=== PATIENT | male | born 1985 | race Two or more races ===

== ENCOUNTER 2020-05-26 11:34 | Emergency (ER) | payer OTHER, SELFPAY ==
[2020-05-26 11:42] VITALS: BP 129/85; PULSE 63; RESP 16; TEMP 37; O2SAT 97; BMI 30.2
[2020-05-26 11:44] VITALS: BP 129/85; PULSE 62; RESP 16; TEMP 37; O2SAT 97
--- NOTE | 2020-05-26 11:46 | ED_ITS ---
HPI - Abdominal Pain General Chief Complaint: Abdominal Pain Stated Complaint: vomiting History of Present Illness HPI narrative: patient presents to ED for withdrawal from opioids. Patient states he last used heroin 3 days ago. Patient states abdominal cramping with some diarrhea and vomiting. Patient states he does not want detox. Patient does not want methadone or Suboxone. Patient states he wants to do it on his own. Patient states no fever, or chills. Patient denies being exposed to anyone with COVID-19. MD elicited complaint: abdominal pain Quality: cramping Radiation: none Associated symptoms: nausea, vomiting and diarrhea Related Data Allergies Allergy/AdvReac Type Severity Reaction Status Date / Time No Known Allergies Allergy Unverified 04/25/20 17:13 Review of Systems Review of Systems Yes all other systems are reviewed and are negative Constitutional: Reports as per HPI and Reports no additional constitutional complaints Eyes: Reports as per HPI and Reports no additional eye complaints Reports system reviewed and no additional complaints, except as documented, Reports as per HPI and Denies odynophagia Cardiovascular: Reports as per HPI and Reports no additional cardiovascular complaints Respiratory: Reports as per HPI and Reports no additional respiratory complaints Gastrointestinal: Reports abdominal pain (crampin), Denies melena, Denies bloating, Denies hematochezia, Denies coffee ground emesis, Denies constipation, Reports GI cramping, Denies excessive flatus, Denies early satiety, Denies dyspepsia, Denies heartburn, Denies fecal incontinence, Reports diarrhea, Denies odynophagia and Denies vomiting Genitourinary: Reports no additional male genitourinary complaints and Reports as per HPI Reports system reviewed and no additional complaints, except as documented and Reports as per HPI Psychiatric: Reports no additional psychiatric complaints and Reports as per HPI Physical Exam Vital Signs: Vital Signs: Vital Signs Temp Pulse Resp BP Pulse Ox 05/26/20 11:44 98.6 F 62 16 129/85 97 05/26/20 11:42 98.6 F 63 16 129/85 97 Body Mass Index 30.2 Const: General: cooperative, healthy appearing, comfortable and no acute distress Orientation/consciousness: oriented to person, oriented to place, oriented to time and patient oriented x3 HENMT: Head: Yes normal to inspection Eyes: General: appearance normal, both eyes and all related structures Neck: Neck: Yes normal visual inspection, Yes full ROM, Yes no lymphadenopathy, Yes no meningeal signs, No lymphadenopathy, No positive Brudzinski's sign and No positive Kernig's sign Chest: Chest palpation & inspection: normal inspection of the chest and normal palpation of entire chest wall Resp: Effort & Inspection: normal respiratory effort and able to speak in complete sentences Cardio: Jugular venous distension: no JVD Rate: regular rate Heart sounds: S1 normal heart sound present and S2 normal heart sound present GI: Inspection: Yes normal to inspection, No abdominal wall ecchymosis, No Abdominal wall edema and No distended Palpation (GI): Soft to palpation, not firm, nontender, no guarding and not rigid Percussion: Yes normal to percussion Auscultation: normal bowel sounds : General: No CVA tenderness and Yes no CVA tenderness Back/Spine/Pelvis: Back: no CVA tenderness, No CVA tenderness and No back tend erness Skin: General skin exam: no rashes or lesions noted Neuro: General: oriented to person, oriented to place, oriented to time, patient oriented x3, no meningeal signs and CN's II-XI intact bilaterally Cranial nerves: Yes CN's II-XII intact bilaterally Extrem: General: Yes normal to inspection and Yes full ROM Psych: Appearance: grossly normal, well kempt and not disheveled Course Course Course Narrative: Vital signs are stable. History physical exam indicate heroin withdrawal. 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 Patient wants to end heroin use by myself. Reevaluation(s) Reevaluation #1: patient states he feels better after receiving Ativan and Zofran. Patient withdrawal symptoms resolved. Patient once again does not want detox and does not want referral for Suboxone or methadone program. Labs not indicated. Patient did not have any vomiting or diarrhea during ED visit Time: 13:46 MDM - Abdominal Pain MDM Narrative Medical decision making narrative: opioid withdrawal Discharge Plan Discharge Clinical Impression: Withdrawal from opioids Patient Disposition: Home, Self-Care Instructions: Opioid Withdrawal (ED) Additional Instructions: return to the ED for any tremors, severe abdominal pain, vomiting, sweating, diarrhea, weakness, or any other concerning symptoms. Please follow up with your PCP as soos as possible Interventions: ED Discharge Assessment Last Done: 05/26/20 14:12 Discharge Date/Time: 05/26/20 14:13 Print Language: Polish [facility] Past Medical History Medical History (Updated 05/26/20 @ 13:50 by LEWIS Morrow) Asthma Social History Social History Alcohol intake: never Smoking Status: Current every day smoker Use of substances other than those prescribed or required for medical reasons: No Advance Directives: No Advance Directives Information Provided: No
[2020-05-26] MEDS: LORazepam 1 MG TABLET 2 MG PO (12:04)
--- NOTE | 2020-05-26 12:24 | PC.NURSE ---
PT PRESENTS TO ED C/O DIFFUSE ABD AND BODY PAIN W/ N/V/D X2 DAYS, NO FOCAL POINTS OF TENDERNESS IN ABD. PT THEN LATER REPORTS THAT HE IS A REGULAR HEROIN USER AND IS CURRENTLY EXPERIENCING WITHDRAWLS, HAS NOT USED IN MULTIPLE DAYS. PROVIDER AWARE. PT MEDICATED FOR NAUSEA AND AGGITATION PER EMAR. PT NOW R SIDE LYING IN BED RESTING.
== END 2020-05-26 14:13 | disposition home or self-care (01) ==
PROVIDERS: Emergency Provider Emergency Medicine
DX: F11.93 Opioid use, unspecified with withdrawal (principal); R10.9 Unspecified abdominal pain; F17.200 Nicotine dependence, unspecified, uncomplicated
CPT/HCPCS: 96361; 96374; 96375; 99284; J2405

== ENCOUNTER 2022-04-30 19:46 | Observation (INO) | payer OTHER, SELFPAY ==
--- NOTE | ~2022-04-30 | XR_ITS ---
EXAMINATION: XR CHEST CLINICAL INFORMATION: Dyspnea COMPARISON: Chest x-ray on 04/28/2018 TECHNIQUE: Frontal view of the chest was obtained. FINDINGS: The cardiac silhouette is normal. There is mild diffuse bronchial wall thickening. There are no areas of consolidation. There are no pleural effusions or pneumothoraces. The bones and soft tissues are unremarkable for the patient's age. XR/XR chest 1V IMPRESSION: Bronchial wall thickening may be infectious and/or inflammatory in etiology.
[2022-04-30 19:47] VITALS: BP 117/69; PULSE 71; RESP 14; TEMP 37.2; O2SAT 93; BMI 32.3
--- NOTE | 2022-04-30 20:00 | ED_ITS ---
HPI - SOB/Dyspnea General Chief Complaint: Dyspnea Stated Complaint: Asthma Time Seen by Provider: 04/30/22 19:57 Source: patient Mode of arrival: ambulatory Limitations: no limitations History of Present Illness HPI Narrative: 36-year-old male states he ran out of his albuterol yesterday patient appears to be in status on arrival patient was brought immediately back to the room was seen immediately by me patient speaking in 3-5 word sentences patient denies any falls or injuries he states he was here in the hospital 4 months ago he does not have a primary care doctor. MD elicited complaint: shortness of breath and cough Pertinent past history: COPD and asthma Related Data Allergies Allergy/AdvReac Type Severity Reaction Status Date / Time No Known Allergies Allergy Unverified 04/25/20 17:13 Review of Systems Review of Systems: Review of systems: General: Patient denies any fever chills recent illness or falls Musculoskeletal: Denies back pain or body aches or other injuries HEENT: denies headache, runny nose, ear pain Respiratory: shortness of breath, cough Cardiovascular: no chest pain or palpitations : denies dysuria, frequency Abdomen: no nausea vomiting denies abdominal pain Extremities: no swelling, no pain Skin: no diaphoresis Yes all other systems are reviewed and are negative PMFSH Past Medical History Medical History (Updated 04/30/22 @ 21:16 by Emiliano Lima DO) Asthma Social History Social History Alcohol intake: never Advance Directives: No Advance Directives Information Provided: No Physical Exam Vital Signs: Vital Signs: Last Vital Signs Temp 98.9 F 04/30/22 19:47 Pulse 74 04/30/22 21:33 Resp 18 04/30/22 21:33 BP 117/69 04/30/22 19:47 Pulse Ox 93 04/30/22 19:47 O2 Del Method 04/30/22 19:47 BMI result Body Mass Index 32.3 General: Well-appearing well-nourished in no signs of distress HEENT: Normocephalic atraumatic Neck: No signs of JVD, no masses no tenderness or lymphadenopathy Cardiovascular: Regular rate and rhythm Respiratory: Wheezing bilaterally Abdomen: Soft nontender no masses Extremities: Normal pedal pulses no signs of edema Skin: Dry warm no rashes Back: No tenderness full ROM MDM - SOB/Dyspnea MDM Narrative Medical decision making narrative: I will give the patient some breathing treatments prednisone and get an x-ray and workup has including a VBG. Labs looks okay he did improve but still somnolent but arousable now with diffuse wheezing moving more air. I will give another breathing treatment XR shows pneumonia I will start on doxycycline. Differential Diagnosis Differential diagnosis: Likely asthma with exacerbation Medical Records Attestation: I reviewed the patient's medical records. Lab Data Result diagrams: 04/30/22 20:17 04/30/22 20:17 Labs: Lab Results 04/30/22 04/30/22 04/30/22 Range/Units 20:15 20:17 20:17 WBC 12.5 H (4.8-10.8) X10*3/uL RBC 4.74 (4.60-5.80) X10*6/uL Hgb 12.7 L (14.0-18.0) g/dl Hct 40.1 L (42.0-52.0) % MCV 84.6 (80.0-98.0) fL MCH 26.8 L (27.0-33.0) pg MCHC 31.7 (31.0-36.0) g/dl RDW 13.8 (11.0-16.0) % Plt Count 298 (160-400) X10*3/uL MPV 8.8 L (9.4-12.4) fL Immature Gran % (Auto) 0.3 (0.0-0.4) % Neut % (Auto) 68.8 (45-73) % Lymph % (Auto) 20.7 (20-40) % [place] % (Auto) 6.3 (2-11) % Eos % (Auto) 3.6 (0-4) % Baso % (Auto) 0.3 (0-2) % Lymph # (Auto) 2.6 (1.2-4.9) X10*3/uL [place] # (Auto) 0.8 (0.1-1.2) X10*3/uL Eos # (Auto) 0.5 H (0.0-0.4) X10*3/uL Baso # (Auto) 0.0 (0.0-0.2) X10*3/uL Abs Immat Gran (auto) 0.04 H (0.00-0.03) X10*3/uL Absolute Neuts (auto) 8.6 H (2.0-8.3) x10*3/uL Absolute Nucleated RBC 0.000 (0.0-0.012) X10*3/uL Nucleated RBC % (auto) 0.0 (0.0-0.2) /100WBC VBG pH (7.32-7.43) VBG pCO2 mmHg VBG pO2 mmHg VBG HCO3 (22-26) mmol/L VBG O2 Saturation % VBG Base Excess mmol/L Sodium 140 (135-145) mmol/L Potassium 4.2 (3.3-5.1) mmol/L Chloride 105 (96-108) mmol/L Carbon Dioxide 26 (22-29) mmol/L Anion Gap 13 (12-20) BUN 19 H (9-16) mg/dL Creatinine 1.01 (0.5-1.4) mg/dL Estim Creat Clear Calc 133.4 Estimated GFR > 60 Random Glucose 105 (60-115) mg/dL Calcium 9.0 (8.4-10.2) mg/dL Total Bilirubin 0.3 (0.0-1.0) mg/dL AST 13 (5-37) U/L ALT 15 (0-40) U/L Alkaline Phosphatase 80 (39-117) U/L Total Protein 7.1 (6.5-8.0) g/dL Albumin 4.2 (3.5-5.0) g/dL COVID-19 (DARIEL) Negative (Negative) COVID-19 Clin Com See Note 04/30/22 Range/Units 20:23 WBC (4.8-10.8) X10*3/uL RBC (4.60-5.80) X10*6/uL Hgb (14.0-18.0) g/dl Hct (42.0-52.0) % MCV (80.0-98.0) fL MCH (27.0-33.0) pg MCHC (31.0-36.0) g/dl RDW (11.0-16.0) % Plt Count (160-400) X10*3/uL MPV (9.4-12.4) fL Immature Gran % (Auto) (0.0-0.4) % Neut % (Auto) (45-73) % Lymph % (Auto) (20-40) % [place] % (Auto) (2-11) % Eos % (Auto) (0-4) % Baso % (Auto) (0-2) % Lymph # (Auto) (1.2-4.9) X10*3/uL [place] # (Auto) (0.1-1.2) X10*3/uL Eos # (Auto) (0.0-0.4) X10*3/uL Baso # (Auto) (0.0-0.2) X10*3/uL Abs Immat Gran (auto) (0.00-0.03) X10*3/uL Absolute Neuts (auto) (2.0-8.3) x10*3/uL Absolute Nucleated RBC (0.0-0.012) X10*3/uL Nucleated RBC % (auto) (0.0-0.2) /100WBC VBG pH 7.38 (7.32-7.43) VBG pCO2 42 mmHg VBG pO2 80 mmHg VBG HCO3 25 (22-26) mmol/L VBG O2 Saturation 96.0 % VBG Base Excess 0.5 mmol/L Sodium (135-145) mmol/L Potassium (3.3-5.1) mmol/L Chloride (96-108) mmol/L Carbon Dioxide (22-29) mmol/L Anion Gap (12-20) BUN (9-16) mg/dL Creatinine (0.5-1.4) mg/dL Estim Creat Clear Calc Estimated GFR Random Glucose (60-115) mg/dL Calcium (8.4-10.2) mg/dL Total Bilirubin (0.0-1.0) mg/dL AST (5-37) U/L ALT (0-40) U/L Alkaline Phosphatase (39-117) U/L Total Protein (6.5-8.0) g/dL Albumin (3.5-5.0) g/dL COVID-19 (DARIEL) (Negative) COVID-19 Clin Com Critical Care Time Critical Care Time Critical Care Time: Yes Total Critical Care Time: 60 Attestation: Patient in status asthmatic is on arrival requiring re-evaluations patient who required multiple of evaluations steroids and admission Discharge Plan Discharge Clinical Impression: Asthma with exacerbation Patient Disposition: Admitted As Inpatient
[2022-04-30 20:07] VITALS: PULSE 67; RESP 14; O2SAT 94
[2022-04-30] MEDS: Albuterol Sulfate 2.5 MG/0.5 ML VIAL.NEB 10 MG INHALE (20:07)
[2022-04-30] MEDS: 0.9 % Sodium Chloride 1,000 ML 999 ML IV (20:21)
[2022-04-30] MEDS: predniSONE 20 MG TABLET 60 MG PO (20:21)
[2022-04-30 20:23] LABS: MANUAL DIFF FLAG NO
[2022-04-30 20:25] LABS: Basophils Percent Auto 0.3 % (0-2); Eosinophils Absolute Auto 0.5 X10*3/uL (0.0-0.4); Eosinophils Percent Auto 3.6 % (0-4); Hematocrit 40.1 % (42.0-52.0); Hemoglobin 12.7 g/dl (14.0-18.0); Imm Gran Abs Auto 0.04 X10*3/uL (0.00-0.03); Imm Gran Pct Auto 0.3 % (0.0-0.4); Lymphocytes Absolute Auto 2.6 X10*3/uL (1.2-4.9); Lymphocytes Percent Auto 20.7 % (20-40); Mean Corpuscular HGB Conc 31.7 g/dl (31.0-36.0); Mean Corpuscular Hemoglobin 26.8 pg (27.0-33.0); Mean Corpuscular Volume 84.6 fL (80.0-98.0); Mean Platelet Volume 8.8 fL (9.4-12.4); Monocytes Absolute Auto 0.8 X10*3/uL (0.1-1.2); Monocytes Percent Auto 6.3 % (2-11); Neutrophils Absolute Auto 8.6 x10*3/uL (2.0-8.3); Neutrophils Percent Auto 68.8 % (45-73); Platelet Count 298 X10*3/uL (160-400); Red Blood Count 4.74 X10*6/uL (4.60-5.80); Red Cell Distribution Width 13.8 % (11.0-16.0); White Blood Count 12.5 X10*3/uL (4.8-10.8)
[2022-04-30 20:32] LABS: VBG Base Excess 0.5 mmol/L; VBG HCO3 25 mmol/L (22-26); VBG pCO2 42 mmHg; VBG pH 7.38 (7.32-7.43); VBG pO2 80 mmHg
[2022-04-30 20:38] LABS: Venous Blood Gas Refer to POC result
[2022-04-30 20:42] LABS: COVID-19 Test Negative (Negative); IDNOW Serial# 16C4AD1C
[2022-04-30 20:43] LABS: Alanine Aminotransferase 15 U/L (0-40); Albumin Level 4.2 g/dL (3.5-5.0); Alkaline Phosphatase 80 U/L (39-117); Anion Gap 13 (12-20); Aspartate Amino Transferase 13 U/L (5-37); Bilirubin Total 0.3 mg/dL (0.0-1.0); Blood Urea Nitrogen 19 mg/dL (9-16); Carbon Dioxide 26 mmol/L (22-29); Chloride 105 mmol/L (96-108); Creatinine Clr Calc Pharmacy 133.4; Estimated Glomerular Filt Rate > 60; Glucose Random 105 mg/dL (60-115); Potassium 4.2 mmol/L (3.3-5.1); Sodium 140 mmol/L (135-145); Total Protein 7.1 g/dL (6.5-8.0)
[2022-04-30] MEDS: methylPREDNISolone Sod Succ 1,000 MG in 0.9 % Sodium Chloride 50 ML 66 MG IV (21:28)
[2022-04-30] MEDS: Albuterol Sulfate 2.5 MG/0.5 ML VIAL.NEB 5 MG INHALE (21:30)
[2022-04-30 21:33] VITALS: PULSE 74; RESP 18; O2SAT 94
--- NOTE | 2022-04-30 22:04 | PM.IMHP ---
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 Reports that his symptoms started about 4 days ago. Tried to treated at home with his inhalers, but his inhalers ran out in his symptoms just worsened. He complains of a constant productive cough, no fever no chills. He reports that he has daily symptoms, and wakes up in the middle the night 3 to 4 times a week with symptoms. He reports no chest pain, no abdominal pain, no nausea or vomiting, no diarrhea constipation, no urinary symptoms and no lower extremity edema. On arrival to the ED patient found to be hypoxic with O2 level of 87% on room air, very drowsy, and having respiratory distress with shallow breathing and use of accessory muscles. Patient placed on high-flow nasal cannula, and started on 1 hour long breathing treatment as well as received high-dose steroid with persistent symptoms. chest x-ray shows possible pneumonia Patient will be admitted for further management Review of Systems Review of Systems: Yes all other systems are reviewed and are negative [facility] Medical History (Updated 05/01/22 @ 06:15 by Jerri Nayak MD) Asthma Family History (Updated 05/01/22 @ 06:10 by Jerri Nayak MD) Other No family history of coronary artery disease Surgical History (Updated 05/01/22 @ 06:10 by Jerri Nayak MD) No pertinent past surgical history Social History Alcohol intake: never Patient Tobacco Use Status: Never used Tobacco Use of substances other than those prescribed or required for medical reasons: No Advance Directives: No Advance Directives Information Provided: No Meds Allergies Allergy/AdvReac Type Severity Reaction Status Date / Time No Known Allergies Allergy Unverified 04/25/20 17:13 Active Medications: Current Medications Methylprednisolone Sodium Succinate 1,000 mg/ Sodium Chloride 66 mls @ 66 mls/hr IV ONCE ONE Stop: 04/30/22 22:14 Last Admin: 04/30/22 21:28 Dose: 66 mls/hr Pharmacy Consult (Consult Rx Perform Med Rec) 1 each MISCELLANE ONCE PRN PRN Reason: Consult order Physical Exam Vital Signs and Narrative: Vital Signs: Last Vital Signs Temp 98.9 F 04/30/22 19:47 Pulse 74 04/30/22 21:33 Resp 18 04/30/22 21:33 BP 117/69 04/30/22 19:47 Pulse Ox 93 04/30/22 19:47 O2 Del Method 04/30/22 19:47 BMI result Body Mass Index 32.3 Const: Other: patient is somnolent but arousable General: cooperative and no acute distress Orientation/consciousness: patient oriented x3 Eyes: General: appearance normal, both eyes and all related structures Resp: Other: expiratory wheezing none respiratory distress at this time Effort & Inspection: normal respiratory effort Cardio: Rate: regular rate Rhythm: regular rhythm GI: Palpation (GI): Soft to palpation Auscultation: normal bowel sounds Skin: General skin exam: no rashes or lesions noted Neuro: General: patient oriented x3 Cognition (Neuro): normal cognition Extrem: General: Yes normal to inspection and Yes no pedal edema Results Labs CBC and Chem 7: 04/30/22 20:17 04/30/22 20:17 Labs: Laboratory Results - last 24 hr 04/30/22 04/30/22 04/30/22 20:15 20:17 20:17 MCV 84.6 MCH 26.8 L MCHC 31.7 RDW 13.8 Plt Count 298 MPV 8.8 L Immature Gran % (Auto) 0.3 Neut % (Auto) 68.8 Lymph % (Auto) 20.7 [place] % (Auto) 6.3 Eos % (Auto) 3.6 Baso % (Auto) 0.3 Lymph # (Auto) 2.6 [place] # (Auto) 0.8 Eos # (Auto) 0.5 H Baso # (Auto) 0.0 Abs Immat Gran (auto) 0.04 H Absolute Neuts (auto) 8.6 H Absolute Nucleated RBC 0.000 Nucleated RBC % (auto) 0.0 VBG pH VBG pCO2 VBG pO2 VBG HCO3 VBG O2 Saturation VBG Base Excess Anion Gap 13 Estim Creat Clear Calc 133.4 Estimated GFR > 60 Random Glucose 105 Calcium 9.0 Total Bilirubin 0.3 AST 13 ALT 15 Alkaline Phosphatase 80 Total Protein 7.1 Albumin 4.2 COVID-19 (DARIEL) Negative COVID-19 Clin Com See Note 04/30/22 20:23 MCV MCH MCHC RDW Plt Count MPV Immature Gran % (Auto) Neut % (Auto) Lymph % (Auto) [place] % (Auto) Eos % (Auto) Baso % (Auto) Lymph # (Auto) [place] # (Auto) Eos # (Auto) Baso # (Auto) Abs Immat Gran (auto) Absolute Neuts (auto) Absolute Nucleated RBC Nucleated RBC % (auto) VBG pH 7.38 VBG pCO2 42 VBG pO2 80 VBG HCO3 25 VBG O2 Saturation 96.0 VBG Base Excess 0.5 Anion Gap Estim Creat Clear Calc Estimated GFR Random Glucose Calcium Total Bilirubin AST ALT Alkaline Phosphatase Total Protein Albumin COVID-19 (DARIEL) COVID-19 Clin Com Imaging Radiologist's Impressions: Impressions Chest X-Ray 04/30/22 20:34 IMPRESSION: Bronchial wall thickening may be infectious and/or inflammatory in etiology. Assessment and Plan (1) Asthma with exacerbation: Status: Acute (2) Community acquired pneumonia: Status: Acute (3) Acute respiratory failure with hypoxia: Status: Acute Plan 36-year-old male with past medical history of asthma presents to the hospital with asthma exacerbation # acute hypoxic respiratory failure - secondary to asthma exacerbation as well as pneumonia - continue O2 supplement as needed and titrate off as tolerated - continue treatment with steroids, DuoNeb p.r.n. and scheduled # acute asthma exacerbation - will treat with IV steroids, DuoNeb p.r.n. and scheduled - continue O2 supplement as needed # community-acquired pneumonia - COVID negative - has evidence of infiltrates on chest x-ray - no evidence of sepsis - will treat with IV antibiotics - follow cultures DVT prophylaxis: early ambulation Quality Stroke Does the patient have a stroke diagnosis?: No VTE Prior VTE?: No VTE Risk Level:: Medical - low VTE Device Contraindication: Treatment Not Indicated VTE Drug Contraindication: Treatment Not Indicated
[2022-04-30] MEDS: cefTRIAXone sodium 1 GM in 0.9 % Sodium Chloride 50 ML IV (22:34)
[2022-04-30] MEDS: Azithromycin 500 MG in 0.9 % Sodium Chloride 250 ML 125 MG IV (22:37)
[2022-04-30 23:40] VITALS: BP 109/53; PULSE 80; RESP 15; TEMP 36.8; O2SAT 95
--- NOTE | 2022-05-01 03:49 | PC.NURSE ---
Addendum entered by Susan Colón RN 05/01/22 05:13: Pt continuing to pace his room, unable and unwilling to sit in the bed. Original Note: Pt brought into ER with an asthma attack. Pt was very sleepy when he first got here, received fluids and breathing treatments. Pt was wheezing and diaphoretic, slow to respond to questions. His partner gave most of the story and background. Pt has been asleep for the majority of the night, respiratory status was improving. 0345, pt was seen up and walking wihtout oxygen, stating he feels brand new! Pt looks much more lively and energetic than he did upon arrival.
[2022-05-01 06:54] LABS: Basophils Percent Auto 0.1 % (0-2); Hematocrit 39.2 % (42.0-52.0); Hemoglobin 12.4 g/dl (14.0-18.0); Imm Gran Abs Auto 0.03 X10*3/uL (0.00-0.03); Imm Gran Pct Auto 0.4 % (0.0-0.4); Lymphocytes Absolute Auto 0.6 X10*3/uL (1.2-4.9); MANUAL DIFF FLAG SCAN; Mean Corpuscular HGB Conc 31.6 g/dl (31.0-36.0); Mean Corpuscular Hemoglobin 27.3 pg (27.0-33.0); Mean Corpuscular Volume 86.3 fL (80.0-98.0); Mean Platelet Volume 9.4 fL (9.4-12.4); Monocytes Absolute Auto 0.1 X10*3/uL (0.1-1.2); Monocytes Percent Auto 0.6 % (2-11); Neutrophils Absolute Auto 7.9 x10*3/uL (2.0-8.3); Neutrophils Percent Auto 91.9 % (45-73); Platelet Count 332 X10*3/uL (160-400); Red Blood Count 4.54 X10*6/uL (4.60-5.80); SCAN SMEAR FLAG 1; White Blood Count 8.6 X10*3/uL (4.8-10.8)
[2022-05-01 07:10] LABS: Anion Gap 16 (12-20); Blood Urea Nitrogen 19 mg/dL (9-16); Calcium 9.4 mg/dL (8.4-10.2); Carbon Dioxide 19 mmol/L (22-29); Chloride 109 mmol/L (96-108); Creatinine Clr Calc Pharmacy 130.8; Estimated Glomerular Filt Rate > 60; Glucose Random 271 mg/dL (60-115); Potassium 4.2 mmol/L (3.3-5.1); Sodium 140 mmol/L (135-145)
[2022-05-01 07:15] LABS: SLIDE REVIEW VERIFIED
--- NOTE | 2022-05-01 07:39 | PHA.MEDREC ---
Pharmacy Consult ? Medication Reconciliation Pharmacy has completed the medication reconciliation.
[2022-05-01] MEDS: Albuterol/Iprat 2.5/0.5MG 3 ML AMPUL.NEB INHALE (07:44)
[2022-05-01 07:45] VITALS: PULSE 101; RESP 26; O2SAT 92
[2022-05-01 09:00] VITALS: BP 129/75; PULSE 89; RESP 24; TEMP 36.6; O2SAT 95
--- NOTE | 2022-05-01 09:32 | PM.CNPUL ---
History of Present Illness History of Present Illness Consult date: 05/01/22 Chief complaint: Asthma Exacerbation Narrative: This is an inpatient pulmonary consultation. The patient is a 36-year-old male with past medical history of asthma presents to the hospital with asthma exacerbation.? Reports that his symptoms started about 4 days ago.? Tried to treated at home with his inhalers, but his inhalers ran out in his symptoms just worsened.? He complains of a constant? productive cough, no fever no chills.? He reports that he has daily symptoms, and wakes up in the middle the night 3 to 4 times a week with symptoms.?On arrival to the ED patient? found to be hypoxic with O2 level of 87% on room air, very drowsy, and having respiratory distress with shallow breathing and use of accessory muscles.? Patient placed on high-flow nasal cannula, and started on 1 hour long breathing treatment as well as received high-dose steroid? with persistent symptoms. 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 He also owns a dog. He also smoking. We talked about all the potential triggers that are activating his asthma. The patient is feeling better. Will make sure that he has follow-up with us as an outpatient. Currently he is on room air. Review of Systems Review of Systems: Review of systems: General: Patient denies any fever chills recent illness or falls Musculoskeletal: Denies back pain or body aches or other injuries HEENT: denies headache, runny nose, ear pain Respiratory: shortness of breath, cough Cardiovascular: no chest pain or palpitations : denies dysuria, frequency Abdomen: no nausea vomiting denies abdominal pain Extremities: no swelling, no pain Skin: no diaphoresis Yes all other systems are reviewed and are negative PMFSH Past Medical History Medical History (Updated 05/01/22 @ 09:35 by Shawn Novoa MD) Asthma Bakers' asthma Tobacco dependence Family History Family History (Updated 05/01/22 @ 06:10 by Jerri Nayak MD) Other No family history of coronary artery disease Surgical History Surgical History (Updated 05/01/22 @ 06:10 by Jerri Nayak MD) No pertinent past surgical history Social History Social History Alcohol intake: never Patient Tobacco Use Status: Never used Tobacco Use of substances other than those prescribed or required for medical reasons: No Advance Directives: No Advance Directives Information Provided: No Meds Allergies Allergy/AdvReac Type Severity Reaction Status Date / Time No Known Allergies Allergy Unverified 04/25/20 17:13 Active Medications: Current Medications Acetaminophen (Acetaminophen 325 Mg Tablet) 650 mg PO Q6H PRN PRN Reason: Pain, Mild (Pain Scale 1-3) Albuterol/Ipratropium (Albuterol/Iprat 2.5/0.5mg 3 Ml Ampul.Neb) 3 ml INHALE Q4H PRN PRN Reason: Shortness of Breath/Wheezing Albuterol/Ipratropium (Albuterol/Iprat 2.5/0.5mg 3 Ml Ampul.Neb) 3 ml INHALE RQ4H WHILE AWAKE [facility] Last Admin: 05/01/22 07:44 Dose: 3 ml Docusate Sodium (Docusate Sodium 100 Mg Capsule) 100 mg PO DAILY PRN PRN Reason: Constipation Azithromycin 500 mg/ Sodium (Chloride) 250 mls @ 125 mls/hr IV Q24H [facility] Last Infusion: 05/01/22 01:05 Dose: Infused Ceftriaxone Sodium 1 gm/ (Sodium Chloride) 50 mls @ 100 mls/hr IV Q24H [facility] Last Infusion: 04/30/22 23:29 Dose: Infused Methylprednisolone Sodium Succinate (Methylprednisolone Sod Succ 40 Mg/Ml Vial) 40 mg IVPUSH Q12H SILVA Ondansetron HCl (Ondansetron Hcl 4 Mg/2 Ml Vial) 4 mg IVPUSH Q8H PRN PRN Reason: Nausea and Vomiting Pharmacy Consult (Consult Rx Perform Med Rec) 1 each MISCELLANE ONCE PRN PRN Reason: Consult order Sodium Chloride (0.9 % Sodium Chloride Flush 3 Ml Syringe) 3 ml IVFLUSH QSHIFT [facility] Last Admin: 05/01/22 01:05 Dose: Not Given Physical Exam Vital Signs: Vital Signs: Last Vital Signs Temp 97.8 F 05/01/22 09:00 Pulse 89 05/01/22 09:00 Resp 24 H 05/01/22 09:00 BP 129/75 05/01/22 09:00 Pulse Ox 95 05/01/22 09:00 O2 Del Method 05/01/22 09:00 O2 Flow Rate 3 04/30/22 23:40 BMI result Body Mass Index 32.3 General: Well-appearing well-nourished in no signs of distress HEENT: Normocephalic atraumatic Neck: No signs of JVD, no masses no tenderness or lymphadenopathy Cardiovascular: Regular rate and rhythm Respiratory: Wheezing bilaterally Abdomen: Soft nontender no masses Extremities: Normal pedal pulses no signs of edema Skin: Dry warm no rashes Back: No tenderness full ROM Results Laboratory Findings CBC and BMP: 05/01/22 06:15 05/01/22 06:15 Abnormal lab findings: Abnormal Labs 04/30/22 04/30/22 05/01/22 20:17 20:17 06:15 WBC 12.5 H RBC 4.54 L Hgb 12.7 L 12.4 L Hct 40.1 L 39.2 L MCH 26.8 L MPV 8.8 L Neut % (Auto) 91.9 H Lymph % (Auto) 7.0 L [place] % (Auto) 0.6 L Lymph # (Auto) 0.6 L Eos # (Auto) 0.5 H Abs Immat Gran (auto) 0.04 H Absolute Neuts (auto) 8.6 H Chloride Carbon Dioxide BUN 19 H Random Glucose 05/01/22 06:15 WBC RBC Hgb Hct MCH MPV Neut % (Auto) Lymph % (Auto) [place] % (Auto) Lymph # (Auto) Eos # (Auto) Abs Immat Gran (auto) Absolute Neuts (auto) Chloride 109 H Carbon Dioxide 19 L BUN 19 H Random Glucose 271 H D Assessment and Plan (1) Acute respiratory failure with hypoxia: Status: Acute (2) Community acquired pneumonia: Status: Acute (3) Asthma with exacerbation: Status: Acute (4) Bakers' asthma: Status: Acute (5) Tobacco dependence: Status: Acute Plan Prednisone taper Brief course of doxycycline in IVANNA as needed Start Symbicort 2puff BID start Singulair 10mg qhs tobacco cessation 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
[2022-05-01] MEDS: methylPREDNISolone Sod Succ 40 MG/ML VIAL IVPUSH (09:34)
[2022-05-01] MEDS: 0.9 % Sodium Chloride Flush 3 ML SYRINGE IVFLUSH (09:35)
--- NOTE | 2022-05-01 09:37 | PC.NURSE ---
Pt aox3. Bilateral wheezing present. No apparent distress noted. at bedside. Pt aware of plan of care.
--- NOTE | 2022-05-01 09:43 | PM.DS ---
DS: Providers Provider Date of Service: 05/01/22 Date of admission: 04/30/22 21:57 Primary care physician: Jas Hopkins III, MD Consults: 04/30/22 23:34 Consult to Pulmonology Routine Consulting Provider: Shawn Novoa Reason for consultation: Poorly controlled asthma Has provider been notified: No DS: Diagnosis Discharge Diagnosis (1) Acute respiratory failure with hypoxia: Status: Acute (2) Community acquired pneumonia: Status: Acute (3) Asthma with exacerbation: Status: Acute (4) Bakers' asthma: Status: Acute (5) Tobacco dependence: Status: Acute DS: Summary Hospital Course Hospital Course: Chief Complaint: SOB, wheezing ?Serbian-speaking only, history is obtained with the help of an tool inspector ?36-year-old male with past medical history of asthma presents to the hospital with asthma exacerbation.? Reports that his symptoms started about 4 days ago.? Tried to treated at home with his inhalers, but his inhalers ran out in his symptoms just worsened.? He complains of a constant? productive cough, no fever no chills.? He reports that he has daily symptoms, and wakes up in the middle the night 3 to 4 times a week with symptoms.? He reports no chest pain, no abdominal pain, no nausea or vomiting, no diarrhea constipation, no urinary symptoms and no lower extremity edema.? On arrival to the ED patient? found to be hypoxic with O2 level of 87% on room air, very drowsy, and having respiratory distress with shallow breathing and use of accessory muscles.? Patient placed on high-flow nasal cannula, and started on 1 hour long breathing treatment as well as received high-dose steroid? with persistent symptoms. ?chest x-ray shows possible pneumonia ?Patient will be admitted for further management. Hospital coruse: He presented with shortness breath no fever, normal WBC, CXR showed bronchial wall thickening ? inflamatory or infectious. He was given Azithro and Ceftriaxone for presumed CAP, asthma exacerbation was treated with IV steroid, bronchidilators by Neb by the following day was feeling better, no hypoxia, tolerating ambualation. on exam: minimal wheeze and no accessory muscle use, he felt comfortable going home. Discussed need for tobacco cessation with him. Will discharge with Prednisone, Levaquin for presume pneumonia and Albuterol for asthm and to continue singulair and Budesonide Time Spent with Patient Time attestation: Total time spent providing and/or coordinating discharge services: Discharge coordination time: Greater than 30 minutes Quality: Safe Use of Opioids Does Pt have an Active Cancer Diagnosis on the Problem List?: No Quality: Stroke Does the patient have a stroke diagnosis?: No Physical Exam Vital Signs: Vital Signs: Last Vital Signs Temp 97.8 F 05/01/22 09:00 Pulse 89 05/01/22 09:00 Resp 24 H 05/01/22 09:00 BP 129/75 05/01/22 09:00 Pulse Ox 95 05/01/22 09:00 O2 Del Method 05/01/22 09:00 O2 Flow Rate 3 04/30/22 23:40 BMI result Body Mass Index 32.3 DS: Data Data Completed and Pending Labs on day of discharge: Laboratory Results - last 24 hr 04/30/22 04/30/22 04/30/22 20:15 20:17 20:17 WBC 12.5 H RBC 4.74 Hgb 12.7 L Hct 40.1 L MCV 84.6 MCH 26.8 L MCHC 31.7 RDW 13.8 Plt Count 298 MPV 8.8 L Immature Gran % (Auto) 0.3 Neut % (Auto) 68.8 Lymph % (Auto) 20.7 [place] % (Auto) 6.3 Eos % (Auto) 3.6 Baso % (Auto) 0.3 Lymph # (Auto) 2.6 [place] # (Auto) 0.8 Eos # (Auto) 0.5 H Baso # (Auto) 0.0 Abs Immat Gran (auto) 0.04 H Absolute Neuts (auto) 8.6 H Absolute Nucleated RBC 0.000 Nucleated RBC % (auto) 0.0 Smear Tech's Comments VBG pH VBG pCO2 VBG pO2 VBG HCO3 VBG O2 Saturation VBG Base Excess Sodium 140 Potassium 4.2 Chloride 105 Carbon Dioxide 26 Anion Gap 13 BUN 19 H Creatinine 1.01 Estim Creat Clear Calc 133.4 Estimated GFR > 60 Random Glucose 105 Calcium 9.0 Total Bilirubin 0.3 AST 13 ALT 15 Alkaline Phosphatase 80 Total Protein 7.1 Albumin 4.2 COVID-19 (DARIEL) Negative COVID-19 Clin Com See Note 04/30/22 05/01/22 05/01/22 20:23 06:15 06:15 WBC 8.6 RBC 4.54 L Hgb 12.4 L Hct 39.2 L MCV 86.3 MCH 27.3 MCHC 31.6 RDW 14.0 Plt Count 332 MPV 9.4 Immature Gran % (Auto) 0.4 Neut % (Auto) 91.9 H Lymph % (Auto) 7.0 L [place] % (Auto) 0.6 L Eos % (Auto) 0.0 Baso % (Auto) 0.1 Lymph # (Auto) 0.6 L [place] # (Auto) 0.1 Eos # (Auto) 0.0 Baso # (Auto) 0.0 Abs Immat Gran (auto) 0.03 Absolute Neuts (auto) 7.9 Absolute Nucleated RBC 0.000 Nucleated RBC % (auto) 0.0 Smear Tech's Comments VERIFIED VBG pH 7.38 VBG pCO2 42 VBG pO2 80 VBG HCO3 25 VBG O2 Saturation 96.0 VBG Base Excess 0.5 Sodium 140 Potassium 4.2 Chloride 109 H Carbon Dioxide 19 L Anion Gap 16 BUN 19 H Creatinine 1.03 Estim Creat Clear Calc 130.8 Estimated GFR > 60 Random Glucose 271 H D Calcium 9.4 Total Bilirubin AST ALT Alkaline Phosphatase Total Protein Albumin COVID-19 (DARIEL) COVID-19 Clin Com Discharge Plan Discharge Anticipated Discharge Date/Time: 05/01/22 09:35 Patient Disposition: Home, Self-Care Discharge Diagnosis: Asthma exacerbation, Pneumonia Referrals: Jas Hopkins III, MD [Primary Care Provider] - 1 Week Discharge Medications: New levofloxacin 750 mg Tablet 750 mg PO Q24H Qty: 4 0RF albuterol sulfate 90 mcg/actuation HFA aerosol inhaler 2 inh inhalation Q6H PRN (Reason: shortness of breath or wheezing) Qty: 8.5 0RF prednisone 20 mg tablet 40 mg PO DAILY Qty: 8 0RF Continued montelukast [Singulair] 10 mg tablet 10 mg PO BEDTIME 30 Days Qty: 30 11RF budesonide-formoterol [Symbicort] 160-4.5 mcg/actuation HFA aerosol inhaler 2 puff inhalation BID 30 Days Qty: 10.2 11RF Diet: Advance to usual diet Activity on Discharge: As tolerated Stand Alone Forms: Patient Portal Discharge page Care Plan Goals: Full recovery from asthma exacerbation Health Concerns: asthma, pneumonia Plan of Treatment: Take Levaquin as directed and follow up with your Doctor david week use inhalers and take Prednisone Assessment: as above
[2022-05-01 09:53] VITALS: BP 130/74; PULSE 96; RESP 16; TEMP 37.1; O2SAT 92
--- NOTE | 2022-05-01 09:56 | PC.NURSE ---
Orders received from Dr Whyte to for new vitals. Pt VSS and sent to Dr Whtye. Pt reports feeling relief and agrees with plan to be discharged home. Md hassan.
[2022-05-01] MEDS: levoFLOXacin 750 MG TABLET PO (10:27)
--- NOTE | 2022-05-01 10:48 | MHC.CM.PN ---
Met with patient in regards to discharge planning. Patient lives alone, ambulates independently and had no services prior to coming to the hospital. PCP verified. Patient received 2 Moderna vaccines. No services anticipated to be needed at discharge becuase patient is not homebound. Patient requesting work note at discharge. Obs notice explained and signed. Patient will transport himself home when medically stable. Continue to monitor for d/c needs.
== END 2022-05-01 11:00 | disposition home or self-care (01) ==
LOC: HO.ED 21:17 → HO.EDOVER 22:18
PROVIDERS: Admitting Provider Internal Medicine; Emergency Provider Student in an Organized Health Care Education/Training Program; PCP Internal Medicine; Visit Provider Internal Medicine
DX: J96.01 Acute respiratory failure with hypoxia (principal); J18.9 Pneumonia, unspecified organism; J45.901 Unspecified asthma with (acute) exacerbation; F17.200 Nicotine dependence, unspecified, uncomplicated; Z20.822 Contact with and (suspected) exposure to COVID-19; Z79.899 Other long term (current) drug therapy
CPT/HCPCS: 36415; 71045; 80048; 80053; 82803; 85025; 87040; 87635; 94640; 96361; 96365; 96366; 96367; 99218; 99285; J0456; J0696; J2920; J2930

== ENCOUNTER → 2022-05-14 15:03 | Outpatient (BNVA) | payer OTHER, SELFPAY | PROVIDERS: PCP Internal Medicine; Visit Provider Hospitalist | DX: J45.40 Moderate persistent asthma, uncomplicated (principal); J67.8 Hypersensitivity pneumonitis due to other organic dusts; F17.200 Nicotine dependence, unspecified, uncomplicated | CPT/HCPCS: 99212 ==

== ENCOUNTER 2022-12-14 17:04 | Emergency (ER) | payer OTHER, SELFPAY ==
--- NOTE | ~2022-12-14 | XR_ITS ---
EXAMINATION: CHEST 2 VIEWS CLINICAL INFORMATION: pain. COMPARISON: 04/30/2022. TECHNIQUE: AP frontal and lateral views of the chest obtained FINDINGS: The lungs are well expanded. No focal infiltrate, effusion, edema, or pneumothorax. Mild peribronchial thickening bilaterally again seen. This could be related to underlying reactive or small airways disease. This is persistent but less prominent when compared to the prior study. Cardiac and mediastinal silhouettes are within normal limits for technique. No acute bony abnormality seen XR/XR chest 2V IMPRESSION: Mild peribronchial thickening again seen but less prominent when compared to the prior study. This could be related to underlying reactive or small airways disease.
--- NOTE | ~2022-12-14 | CT_ITS ---
EXAMINATION: CT HEAD WITHOUT CONTRAST CLINICAL INFORMATION: Trauma. COMPARISON: None. TECHNIQUE: Contiguous axial imaging was performed from the skullbase to vertex without intravenous administration of contrast. This CT examination was performed using dose optimization techniques as appropriate, variously including the following: *Automated exposure control *Adjustment of mA and/or kV according to patient size (this includes techniques or standardized protocols for targeted exams where dose is matched to indication/reason for exam; i.e. extremities or head) *Use of iterative reconstruction technique DLP: 730 mGy-cm. FINDINGS: There is no evidence of acute intracranial hemorrhage or territorial infarction. No abnormal mass effect or midline shift is seen. [place] to white matter differentiation is well preserved. No extra-axial fluid collections are identified. The ventricles are normal in size. There is no abnormal attenuation within the brain parenchyma. The osseous structures and soft tissues are normal. There is a mild amount of fluid in the dependent mastoid air cells bilaterally. There is mild maxillary and ethmoid sinus mucosal thickening. Leftward nasal septal deviation noted with nasal septal spurring impressing upon the left inferior turbinate. There is a perforated defect in the anteroinferior portion of the cartilaginous nasal septum. CT/CT head/brain wo IV con IMPRESSION: No acute intracranial pathology.
[2022-12-14 17:36] VITALS: BP 137/74; PULSE 86; RESP 18; TEMP 36.8; O2SAT 99; BMI 25.1
--- NOTE | 2022-12-14 17:37 | ED_ITS ---
HPI - General Adult General Chief complaint: Fall <Fam Casey - Last Filed: 12/14/22 17:40> Stated complaint: Fell lip laceration <Fam Casey - Last Filed: 12/14/22 17:40> Time Seen by Provider: 12/14/22 22:25 <Fam Casey - Last Filed: 12/14/22 17:40> Source: patient <LEWIS Morrow Last Filed: 12/15/22 01:19> Mode of arrival: ambulatory <LEWIS Morrow Last Filed: 12/15/22 01:19> Limitations: no limitations <LEWIS Morrow Last Filed: 12/15/22 01:19> History of Present Illness HPI narrative: 37 yold male presents to the ED for fall and hitting head. patient states he was sleeping on the stairs and he while sleeping on the stairs he leaned foward and hit head lip on the stair rail. patient denies any other complants. patient denies any chest pain, shortness of breath, abdominal pain, pain in extremites, rectal bleed, blood in urine, or coughing/vomitting up blood. Patient states uptodate with tetanus. <LEWIS Morrow Last Filed: 12/15/22 01:19> Related Data Home medications: Previous Rx's Medication Instructions Recorded albuterol sulfate 90 mcg/actuation 2 inh inhalation Q6H PRN shortness 05/01/22 aerosol inhaler of breath or wheezing #8.5 grams budesonide-formoterol HFA 160 2 puff inhalation BID 30 days 05/01/22 mcg-4.5 mcg/actuation aerosol #10.2 grams inhaler (Symbicort) montelukast 10 mg tablet 10 mg PO BEDTIME 30 days #30 tabs 05/01/22 (Singulair) prednisone 20 mg tablet 40 mg PO DAILY #8 tabs 05/01/22 <Fam Casey - Last Filed: 12/14/22 17:40> Allergies/adverse reactions: Allergies Allergy/AdvReac Type Severity Reaction Status Date / Time No Known Allergies Allergy Unverified 05/14/22 15:10 <Fam Casey - Last Filed: 12/14/22 17:40> Review of Systems Review of Systems: fall and hit lip <LEWIS Morrow - Last Filed: 12/15/22 01:19> Yes all other systems are reviewed and are negative <LEWIS Morrow - Last Filed: 12/15/22 01:19> [facility] Past Medical History Medical History: Medical History (Updated 12/15/22 @ 00:33 by Nehal Tabares) Asthma Asthma Bakers' asthma Tobacco dependence <Fam Casey - Last Filed: 12/14/22 17:40> Surgical History: Surgical History (Updated 05/01/22 @ 06:10 by Jerri Nayak MD) No pertinent past surgical history <Fam Casey - Last Filed: 12/14/22 17:40> Family History Family History: Family History (Updated 05/01/22 @ 06:10 by Jerri Nayak MD) Other No family history of coronary artery disease <Fam Casey - Last Filed: 12/14/22 17:40> Social History Social History: Social History (Updated 05/14/22 @ 15:12 by POOJA Euceda) Alcohol intake: never Patient Tobacco Use Status: Current everyday Tobacco user Tobacco use type: Cigarette Advance Directives: No Advance Directives Information Provided: Yes service: No Current occupational status: employed <Fam Casey - Last Filed: 12/14/22 17:40> Physical Exam ED Vital Signs: Vital Signs - 24 hr 12/14/22 17:36 Temperature 98.3 F Pulse Rate 86 Respiratory Rate 18 Blood Pressure 137/74 Pulse Oximetry 99 Oxygen Delivery Method Room Air BMI result Body Mass Index 25.1 <Fam Casey - Last Filed: 12/14/22 17:40> Vital Signs - 24 hr 12/14/22 17:36 Temperature 98.3 F Pulse Rate 86 Respiratory Rate 18 Blood Pressure 137/74 Pulse Oximetry 99 Oxygen Delivery Method Room Air BMI result Body Mass Index 25.1 <LEWIS Morrow - Last Filed: 12/15/22 01:19> Const General: cooperative, healthy appearing, comfortable, no acute distress, well developed, alert, awake and Physically active <LEWIS Morrow - Last Filed: 12/15/22 01:19> Orientation/consciousness: oriented to person, oriented to place, oriented to time and patient oriented x3 <LEWIS Morrow Last Filed: 12/15/22 01:19> HENPR Head: Yes normal to inspection, Yes No palpable skull fracture present, Yes normocephalic, Yes atraumatic and No abrasion <LEWIS Morrow Last Filed: 12/15/22 01:19> Mouth/tongue images: 1. positive for lip laceration and active bleeding. rest of oral exam is normal <Fam Casey - Last Filed: 12/14/22 17:40> 1. positive for lip laceration and active bleeding. rest of oral exam is normal <LEWIS Morrow Last Filed: 12/15/22 01:19> Eyes General: appearance normal, both eyes and all related structures <LEWIS Morrow Last Filed: 12/15/22 01:19> Neck Neck: Yes normal visual inspection, Yes full ROM, Yes no lymphadenopathy, Yes no meningeal signs, Yes trachea midline, Yes supple, No anterior neck swelling and No tender <LEWIS Morrow Last Filed: 12/15/22 01:19> Chest Chest palpation & inspection: normal inspection of the chest and normal palpation of entire chest wall <LEWIS Morrow Last Filed: 12/15/22 01:19> Resp Effort & Inspection: normal respiratory effort and able to speak in complete sentences <LEWIS Morrow Last Filed: 12/15/22 01:19> Auscultation: clear to auscultation bilaterally <LEWIS Morrow Last Filed: 12/15/22 01:19> Cardio Jugular venous distension: no JVD <LEWIS Morrow Last Filed: 12/15/22 01:19> Heart sounds: S1 normal heart sound present and S2 normal heart sound present <LEWIS Culver Last Filed: 12/15/22 01:19> GI Inspection: Yes normal to inspection and No abdominal wall ecchymosis <LEWIS Morrow Last Filed: 12/15/22 01:19> Palpation (GI): Soft to palpation, not firm, nontender, no guarding and not rigid <LEWIS Morrow Filed: 12/15/22 01:19> General: No CVA tenderness and Yes no CVA tenderness <LEWIS Morrow Last Filed: 12/15/22 01:19> Back/Spine/Pelvis Back: no CVA tenderness, No CVA tenderness and No back tenderness <LEWIS Morrow Last Filed: 12/15/22 01:19> Skin General skin exam: no rashes or lesions noted and elasticity normal <LEWIS Morrow Last Filed: 12/15/22 01:19> Neuro General: oriented to person, oriented to place, oriented to time, patient oriented x3, gait normal, tone normal, moves all extremities, Normal light touch and pain sensation, no meningeal signs, no focal motor deficits and CN's II-XI intact bilaterally <LEWIS Morrow Last Filed: 12/15/22 01:19> Extrem General: Yes normal to inspection and Yes full ROM <LEWIS Morrow Last Filed: 12/15/22 01:19> Psych Appearance: grossly normal, well kempt and not disheveled <LEWIS Morrow Last Filed: 12/15/22 01:19> Course Course Course Narrative: 37-year-old male primarily Burmese-speaking presents for evaluation after a reported syncopal episode. He fell to the ground and sustained a laceration to his left lower lip. He reports after syncopized and he fell and struck his face on a pipe <Fam Casey - Last Filed: 12/14/22 17:40> Reevaluation(s) Reevaluation #1: Lip cleaned with sterile saline and betadine iodoine. lidocaine 4ml used for mental block. absorbalbe size 3 sutures were used. 4 sutures were placed. EKG and troponin negative. rest of labs normal. EARL shows while opiates and fenatyl. head CT scan and chest xray normal. It was discussed with patient necessity for cervical spine CT scan to make sure there is no cervical spine fracture or subluxation which could lead to paralysis but patient refused. Patient understand risk of paralysis but still wants to be discharged. Patient up-to-date with tetanus. <LEWIS Morrow Last Filed: 12/15/22 01:19> Time: 11:47 <LEWIS Morrow - Last Filed: 12/15/22 01:19> Medical Decision Making Medical Decision Making [facility] Narrative: 37 yold male with left lower lip laceration due to fall while sleeping. P atient labs normal except positive EARL. images are normal. Patient refused cervical spine CT scan. Patient understand risk of paralysis. EKG troponin negative for heart attack. Please laceration lip repaired. Absorbable sutures placed. rest of body negative for signs of trauma per <LEWIS Morrow - Last Filed: 12/15/22 01:19> Differential Diagnosis Differential Diagnoses: The differential diagnosis associated with the presentation includes (brain bleed, skull fracture, cervical spine fracture, CO, syncope, hemothorax, pneumothorax) <LEWIS Morrow Last Filed: 12/15/22 01:19> Admission/Observation Consideration of admission/observation: Escalation of care including admission/observation considered <LEWIS Morrow - Last Filed: 12/15/22 01:19> Lab Data [facility] Lab Attestation statement: I reviewed the patient's lab results. <LEWIS Morrow - Last Filed: 12/15/22 01:19> Result Diagrams: 12/14/22 17:51 12/14/22 17:51 <Fam Casey - Last Filed: 12/14/22 17:40> Labs: Lab Results 12/14/22 12/14/22 12/14/22 Range/Units 17:51 17:51 17:51 WBC 11.9 H (4.8-10.8) X10*3/uL RBC 4.87 (4.60-5.80) X10*6/uL Hgb 13.4 L (14.0-18.0) g/dl Hct 41.5 L (42.0-52.0) % MCV 85.2 (80.0-98.0) fL MCH 27.5 (27.0-33.0) pg MCHC 32.3 (31.0-36.0) g/dl RDW 14.5 (11.0-16.0) % Plt Count 278 (160-400) X10*3/uL MPV 9.8 (9.4-12.4) fL Immature Gran % (Auto) 1.2 H (0.0-0.4) % Neut % (Auto) 69.7 (45-73) % Lymph % (Auto) 17.4 L (20-40) % Rooks % (Auto) 10.9 (2-11) % Eos % (Auto) 0.4 (0-4) % Baso % (Auto) 0.4 (0-2) % Lymph # (Auto) 2.1 (1.2-4.9) X10*3/uL Rooks # (Auto) 1.3 H (0.1-1.2) X10*3/uL Eos # (Auto) 0.1 (0.0-0.4) X10*3/uL Baso # (Auto) 0.1 (0.0-0.2) X10*3/uL Abs Immat Gran (auto) 0.14 H (0.00-0.03) X10*3/uL Absolute Neuts (auto) 8.3 (2.0-8.3) x10*3/uL Absolute Nucleated RBC 0.000 (0.0-0.012) X10*3/uL Nucleated RBC % (auto) 0.0 (0.0-0.2) /100WBC Sodium 141 (135-145) mmol/L Potassium 3.7 (3.3-5.1) mmol/L Chloride 106 (96-108) mmol/L Carbon Dioxide 25 (22-29) mmol/L Anion Gap 14 (12-20) BUN 20 H (9-16) mg/dL Creatinine 0.77 (0.5-1.4) mg/dL Estim Creat Clear Calc 149.8 Estimated GFR > 60 Random Glucose 105 (60-115) mg/dL Calcium 9.4 (8.4-10.2) mg/dL Magnesium 2.0 (1.6-2.6) mg/dL Total Bilirubin 0.9 (0.0-1.0) mg/dL AST 82 H (5-37) U/L ALT 54 H (0-40) U/L Alkaline Phosphatase 100 (39-117) U/L Troponin I High Sens 4.1 (<3.5-35.0) ng/L Total Protein 6.9 (6.5-8.0) g/dL Albumin 4.4 (3.5-5.0) g/dL Urine Opiates Screen (Not Detect) Urine Fentanyl Screen (Not Detect) Ur Barbiturates Screen (Not Detect) Ur Phencyclidine Scrn (Not Detect) Ur Amphetamines Screen (Not Detect) U Benzodiazepines Scrn (Not Detect) Urine Cocaine Screen (Not Detect) U Marijuana (THC) Screen (Not Detect) Ethyl Alcohol < 10 mg/dL 12/14/22 Range/Units 17:56 WBC (4.8-10.8) X10*3/uL RBC (4.60-5.80) X10*6/uL Hgb (14.0-18.0) g/dl Hct (42.0-52.0) % MCV (80.0-98.0) fL MCH (27.0-33.0) pg MCHC (31.0-36.0) g/dl RDW (11.0-16.0) % Plt Count (160-400) X10*3/uL MPV (9.4-12.4) fL Immature Gran % (Auto) (0.0-0.4) % Neut % (Auto) (45-73) % Lymph % (Auto) (20-40) % Rooks % (Auto) (2-11) % Eos % (Auto) (0-4) % Baso % (Auto) (0-2) % Lymph # (Auto) (1.2-4.9) X10*3/uL Rooks # (Auto) (0.1-1.2) X10*3/uL Eos # (Auto) (0.0-0.4) X10*3/uL Baso # (Auto) (0.0-0.2) X10*3/uL Abs Immat Gran (auto) (0.00-0.03) X10*3/uL Absolute Neuts (auto) (2.0-8.3) x10*3/uL Absolute Nucleated RBC (0.0-0.012) X10*3/uL Nucleated RBC % (auto) (0.0-0.2) /100WBC Sodium (135-145) mmol/L Potassium (3.3-5.1) mmol/L Chloride (96-108) mmol/L Carbon Dioxide (22-29) mmol/L Anion Gap (12-20) BUN (9-16) mg/dL Creatinine (0.5-1.4) mg/dL Estim Creat Clear Calc Estimated GFR Random Glucose (60-115) mg/dL Calcium (8.4-10.2) mg/dL Magnesium (1.6-2.6) mg/dL Total Bilirubin (0.0-1.0) mg/dL AST (5-37) U/L ALT (0-40) U/L Alkaline Phosphatase (39-117) U/L Troponin I High Sens (<3.5-35.0) ng/L Total Protein (6.5-8.0) g/dL Albumin (3.5-5.0) g/dL Urine Opiates Screen POSITIVE H (Not Detect) Urine Fentanyl Screen POSITIVE H (Not Detect) Ur Barbiturates Screen Not Detected (Not Detect) Ur Phencyclidine Scrn Not Detected (Not Detect) Ur Amphetamines Screen Not Detected (Not Detect) U Benzodiazepines Scrn Not Detected (Not Detect) Urine Cocaine Screen POSITIVE H (Not Detect) U Marijuana (THC) Screen Not Detected (Not Detect) Ethyl Alcohol mg/dL <Fam Casey - Last Filed: 12/14/22 17:40> Lab Results 12/14/22 12/14/22 12/14/22 Range/Units 17:51 17:51 17:51 WBC 11.9 H (4.8-10.8) X10*3/uL RBC 4.87 (4.60-5.80) X10*6/uL Hgb 13.4 L (14.0-18.0) g/dl Hct 41.5 L (42.0-52.0) % MCV 85.2 (80.0-98.0) fL MCH 27.5 (27.0-33.0) pg MCHC 32.3 (31.0-36.0) g/dl RDW 14.5 (11.0-16.0) % Plt Count 278 (160-400) X10*3/uL MPV 9.8 (9.4-12.4) fL Immature Gran % (Auto) 1.2 H (0.0-0.4) % Neut % (Auto) 69.7 (45-73) % Lymph % (Auto) 17.4 L (20-40) % Rooks % (Auto) 10.9 (2-11) % Eos % (Auto) 0.4 (0-4) % Baso % (Auto) 0.4 (0-2) % Lymph # (Auto) 2.1 (1.2-4.9) X10*3/uL Rooks # (Auto) 1.3 H (0.1-1.2) X10*3/uL Eos # (Auto) 0.1 (0.0-0.4) X10*3/uL Baso # (Auto) 0.1 (0.0-0.2) X10*3/uL Abs Immat Gran (auto) 0.14 H (0.00-0.03) X10*3/uL Absolute Neuts (auto) 8.3 (2.0-8.3) x10*3/uL Absolute Nucleated RBC 0.000 (0.0-0.012) X10*3/uL Nucleated RBC % (auto) 0.0 (0.0-0.2) /100WBC Sodium 141 (135-145) mmol/L Potassium 3.7 (3.3-5.1) mmol/L Chloride 106 (96-108) mmol/L Carbon Dioxide 25 (22-29) mmol/L Anion Gap 14 (12-20) BUN 20 H (9-16) mg/dL Creatinine 0.77 (0.5-1.4) mg/dL Estim Creat Clear Calc 149.8 Estimated GFR > 60 Random Glucose 105 (60-115) mg/dL Calcium 9.4 (8.4-10.2) mg/dL Magnesium 2.0 (1.6-2.6) mg/dL Total Bilirubin 0.9 (0.0-1.0) mg/dL AST 82 H (5-37) U/L ALT 54 H (0-40) U/L Alkaline Phosphatase 100 (39-117) U/L Troponin I High Sens 4.1 (<3.5-35.0) ng/L Total Protein 6.9 (6.5-8.0) g/dL Albumin 4.4 (3.5-5.0) g/dL Urine Opiates Screen (Not Detect) Urine Fentanyl Screen (Not Detect) Ur Barbiturates Screen (Not Detect) Ur Phencyclidine Scrn (Not Detect) Ur Amphetamines Screen (Not Detect) U Benzodiazepines Scrn (Not Detect) Urine Cocaine Screen (Not Detect) U Marijuana (THC) Screen (Not Detect) Ethyl Alcohol < 10 mg/dL 12/14/22 Range/Units 17:56 WBC (4.8-10.8) X10*3/uL RBC (4.60-5.80) X10*6/uL Hgb (14.0-18.0) g/dl Hct (42.0-52.0) % MCV (80.0-98.0) fL MCH (27.0-33.0) pg MCHC (31.0-36.0) g/dl RDW (11.0-16.0) % Plt Count (160-400) X10*3/uL MPV (9.4-12.4) fL Immature Gran % (Auto) (0.0-0.4) % Neut % (Auto) (45-73) % Lymph % (Auto) (20-40) % Rooks % (Auto) (2-11) % Eos % (Auto) (0-4) % Baso % (Auto) (0-2) % Lymph # (Auto) (1.2-4.9) X10*3/uL Rooks # (Auto) (0.1-1.2) X10*3/uL Eos # (Auto) (0.0-0.4) X10*3/uL Baso # (Auto) (0.0-0.2) X10*3/uL Abs Immat Gran (auto) (0.00-0.03) X10*3/uL Absolute Neuts (auto) (2.0-8.3) x10*3/uL Absolute Nucleated RBC (0.0-0.012) X10*3/uL Nucleated RBC % (auto) (0.0-0.2) /100WBC Sodium (135-145) mmol/L Potassium (3.3-5.1) mmol/L Chloride (96-108) mmol/L Carbon Dioxide (22-29) mmol/L Anion Gap (12-20) BUN (9-16) mg/dL Creatinine (0.5-1.4) mg/dL Estim Creat Clear Calc Estimated GFR Random Glucose (60-115) mg/dL Calcium (8.4-10.2) mg/dL Magnesium (1.6-2.6) mg/dL Total Bilirubin (0.0-1.0) mg/dL AST (5-37) U/L ALT (0-40) U/L Alkaline Phosphatase (39-117) U/L Troponin I High Sens (<3.5-35.0) ng/L Total Protein (6.5-8.0) g/dL Albumin (3.5-5.0) g/dL Urine Opiates Screen POSITIVE H (Not Detect) Urine Fentanyl Screen POSITIVE H (Not Detect) Ur Barbiturates Screen Not Detected (Not Detect) Ur Phencyclidine Scrn Not Detected (Not Detect) Ur Amphetamines Screen Not Detected (Not Detect) U Benzodiazepines Scrn Not Detected (Not Detect) Urine Cocaine Screen POSITIVE H (Not Detect) U Marijuana (THC) Screen Not Detected (Not Detect) Ethyl Alcohol mg/dL <LEWIS Morrow - Last Filed: 12/15/22 01:19> Independent Interpretation I performed an independent interpretation of an: EKG (NOrmal Sinus rhythm. VEnt ratge 79, and W[place] 116, QRS, 90, QTC 465. negative stemi), Plain X-Ray and CT Scan <LEWIS Morrow Last Filed: 12/15/22 01:19> Radiology Impression Discussion of test interpretation with radiology: I have reviewed the radiologist's reading. <LEWIS Morrow - Last Filed: 12/15/22 01:19> Discharge Plan Discharge Clinical Impression: Fall, Laceration of lip <Fam Casey - Last Filed: 12/14/22 17:40> Patient Disposition: Home, Self-Care <Fam Casey - Last Filed: 12/14/22 17:40> Instructions: Laceration (ED), Head Injury (ED) <Fam Casey - Last Filed: 12/14/22 17:40> Additional Instructions: las suturas en cheryl labios se disolver?n por s? solas. Regrese al servicio de urgencias de inmediato si tiene dolor en el pecho, dificultad para respirar, dolor de meg, mareos, v?mitos con dilshad, dolor de suzi, dolor en las extre midades, dolor abdominal, sangrado rectal, orina con dilshad, enrojecimiento, secreci?n de pus, mal olor o cualquier otro s?ntoma preocupante. No desea tali tomograf?a computarizada de la columna cervical si tiene dolor de suzi, hormigueo en las extremidades superiores, par?lisis de las extremidades superiores o incapacidad para caminar cualquier otro s?ntoma preocupante, regrese al servicio de urgencias de inmediato. Por favor, adrienne un seguimiento con el proveedor de atenci?n primaria. <Fam Casey - Last Filed: 12/14/22 17:40> Prescriptions: No Action montelukast [Singulair] 10 mg tablet 10 mg PO BEDTIME 30 Days Qty: 30 11RF budesonide-formoterol [Symbicort] 160-4.5 mcg/actuation HFA aerosol inhaler 2 puff inhalation BID 30 Days Qty: 10.2 11RF prednisone 20 mg tablet 40 mg PO DAILY Qty: 8 0RF albuterol sulfate 90 mcg/actuation HFA aerosol inhaler 2 inh inhalation Q6H PRN (Reason: shortness of breath or wheezing) Qty: 8.5 0RF <Fam Casey - Last Filed: 12/14/22 17:40> Interventions: ED Discharge Assessment Last Done: 12/14/22 23:27 <Fam Casey - Last Filed: 12/14/22 17:40> Discharge Date/Time: 12/14/22 23:27 <Fam Casey - Last Filed: 12/14/22 17:40> Print Language: Burmese <Fam Casey - Last Filed: 12/14/22 17:40>
--- NOTE | 2022-12-14 17:38 | ECG_ITS ---
Test Reason : SLIP AND FALL Blood Pressure : / mmHG Vent. Rate : 079 BPM Atrial Rate : 079 BPM P-R Int : 116 ms QRS Dur : 090 ms QT Int : 406 ms P-R-T Axes : 053 086 035 degrees QTc Int : 465 ms Normal sinus rhythm Normal ECG No previous ECGs available Referred By: Fam Casey Electronically Signed By:FLY BELLA
[2022-12-14 17:57] LABS: MANUAL DIFF FLAG NO
[2022-12-14 18:11] LABS: Basophils Percent Auto 0.4 % (0-2); Eosinophils Percent Auto 0.4 % (0-4); Hematocrit 41.5 % (42.0-52.0); Hemoglobin 13.4 g/dl (14.0-18.0); Imm Gran Pct Auto 1.2 % (0.0-0.4); Lymphocytes Percent Auto 17.4 % (20-40); Mean Corpuscular HGB Conc 32.3 g/dl (31.0-36.0); Mean Corpuscular Hemoglobin 27.5 pg (27.0-33.0); Mean Corpuscular Volume 85.2 fL (80.0-98.0); Mean Platelet Volume 9.8 fL (9.4-12.4); Monocytes Percent Auto 10.9 % (2-11); Neutrophils Percent Auto 69.7 % (45-73); Platelet Count 278 X10*3/uL (160-400); Red Blood Count 4.87 X10*6/uL (4.60-5.80); Red Cell Distribution Width 14.5 % (11.0-16.0); White Blood Count 11.9 X10*3/uL (4.8-10.8)
[2022-12-14 18:12] LABS: Basophils Absolute Auto 0.1 X10*3/uL (0.0-0.2); Eosinophils Absolute Auto 0.1 X10*3/uL (0.0-0.4); Imm Gran Abs Auto 0.14 X10*3/uL (0.00-0.03); Lymphocytes Absolute Auto 2.1 X10*3/uL (1.2-4.9); Monocytes Absolute Auto 1.3 X10*3/uL (0.1-1.2); Neutrophils Absolute Auto 8.3 x10*3/uL (2.0-8.3)
[2022-12-14 18:27] LABS: Alanine Aminotransferase 54 U/L (0-40); Albumin Level 4.4 g/dL (3.5-5.0); Alkaline Phosphatase 100 U/L (39-117); Anion Gap 14 (12-20); Aspartate Amino Transferase 82 U/L (5-37); Bilirubin Total 0.9 mg/dL (0.0-1.0); Blood Urea Nitrogen 20 mg/dL (9-16); Calcium 9.4 mg/dL (8.4-10.2); Carbon Dioxide 25 mmol/L (22-29); Chloride 106 mmol/L (96-108); Creatinine Clr Calc Pharmacy 149.8; Estimated Glomerular Filt Rate > 60; Ethanol < 10 mg/dL; Glucose Random 105 mg/dL (60-115); Potassium 3.7 mmol/L (3.3-5.1); Sodium 141 mmol/L (135-145); Total Protein 6.9 g/dL (6.5-8.0)
[2022-12-14 18:29] LABS: Troponin-I High Sensitivity 4.1 ng/L (<3.5-35.0)
[2022-12-14 18:29] LABS: Amphetamine Screen Urine Not Detected (Not Detect); Barbiturates, Urine Not Detected (Not Detect); Benzodiazepines Screen Urine Not Detected (Not Detect); Cannabinoid Screen Urine Not Detected (Not Detect); Cocaine Screen Urine POSITIVE (Not Detect); Fentanyl, urine POSITIVE (Not Detect); Opiate Screen Urine POSITIVE (Not Detect); Phencyclidine Screen Urine Not Detected (Not Detect)
== END 2022-12-14 23:27 | disposition home or self-care (01) ==
PROVIDERS: Physician Assistant; Emergency Provider Internal Medicine
DX: S01.511A Laceration without foreign body of lip, initial encounter (principal); R55 Syncope and collapse; R07.89 Other chest pain; W10.9XXA Fall (on) (from) unspecified stairs and steps, initial encounter; Y93.79 Activity, other specified sports and athletics; Y92.9 Unspecified place or not applicable; Y99.9 Unspecified external cause status; F17.200 Nicotine dependence, unspecified, uncomplicated; Z71.6 Tobacco abuse counseling; Z79.899 Other long term (current) drug therapy
CPT/HCPCS: 36415; 70450; 71046; 80053; 80307; 83735; 84484; 85025; 93005; 99283; 99284

== ENCOUNTER 2024-06-09 18:54 | Emergency (ER) | payer MEDICAID, SELFPAY ==
[2024-06-09 19:13] VITALS: BP 133/78; PULSE 76; RESP 16; TEMP 36.5; O2SAT 98; BMI 24.4
--- NOTE | 2024-06-09 19:14 | ED_ITS ---
HPI - General Adult General Chief complaint: General Medical Stated complaint: vomiting, diarrhea Time Seen by Provider: 06/09/24 20:36 Source: patient and family Limitations: no limitations and language barrier History of Present Illness ED Provider: Charo Pabon PA-C HPI narrative: 38-year-old male with a history of heroin abuse presents with nausea vomiting diarrhea x3 days. Associated epigastric discomfort, nonradiating, unable to describe the nature of his symptoms. Patient states he can not tolerate oral intake, he is having 4-5 loose stools daily. Denies use of recent antibiotics, recent hospitalization no travel. No preceding cough or cold symptoms. No one is sick with same symptoms at home. Patient admits to using heroin prior to arrival. Related Data Previous Rx's ?Medication ?Instructions ?Recorded albuterol sulfate 90 mcg/actuation 2 inh inhalation Q6H PRN shortness 05/01/22 aerosol inhaler of breath or wheezing #8.5 grams budesonide-formoterol HFA 160 2 puff inhalation BID 30 days 05/01/22 mcg-4.5 mcg/actuation aerosol #10.2 grams inhaler (Symbicort) montelukast 10 mg tablet 10 mg PO BEDTIME 30 days #30 tabs 05/01/22 (Singulair) prednisone 20 mg tablet 40 mg (2 x 20 mg) PO DAILY #8 tabs 05/01/22 dicyclomine 20 mg tablet 20 mg PO QID PRN abdominal pain 06/09/24 #14 tabs ondansetron HCl 4 mg tablet 4 mg PO Q8H PRN nausea and 06/09/24 vomiting #10 tabs Allergies Allergy/AdvReac Type Severity Reaction Status Date / Time No Known Allergies Allergy Verified 06/09/24 19:17 Review of Systems 2 Review of Systems: Yes all other systems are reviewed and are negative Constitutional: Constitutional: Denies fatigue and Denies fever(s) Cardiovascular: Cardiovascular: Denies chest pain and Denies dyspnea Respiratory: Respiratory: Denies cough and Denies dyspnea Gastrointestinal: Gastrointestinal: Reports abdominal pain, Reports diarrhea and Reports vomiting Endocrine: Endocrine: Denies fatigue PMF Past Medical History Attestation statement: The following information was validated with the patient. Medical History (Updated 06/09/24 @ 23:29 by LEWIS Chapman) Asthma Tobacco dependence Bakers' asthma Asthma Surgical History (Updated 05/01/22 @ 06:10 by Jerri Nayak MD) No pertinent past surgical history Family History Family History (Updated 05/01/22 @ 06:10 by Jerri Nayak MD) Other No family history of coronary artery disease Social History Social History (Updated 05/14/22 @ 15:12 by POOJA Euceda) Alcohol intake: never Patient Tobacco Use Status: Current everyday Tobacco user Tobacco use type: Cigarette Smoked in Last 30 Days: No Use of substances other than those prescribed or required for medical reasons: Yes Substance Use Type: Heroin Substance Use Frequency: Chronic Longstanding Advance Directives: No Advance Directives Information Provided: No service: No Current occupational status: employed Physical Exam ED Vital Signs: Vital Signs - 24 hr 06/09/24 19:13 06/09/24 21:23 06/09/24 22:08 Temperature 97.7 F 99.0 F 99.0 F Pulse Rate 76 52 57 Respiratory Rate 16 12 12 Blood Pressure 133/78 106/56 L 113/61 Pulse Oximetry 98 98 97 Oxygen Delivery Method Room Air Room Air BMI result Body Mass Index 24.4 Const Other: Alert, overall well in appearance Orientation/consciousness: patient oriented x3 Eyes Other: Pupils not pinpoint Resp Other: Nonlabored respiration Cardio Other: Normal peripheral perfusion GI Other: Abdomen is soft, nondistended, nontender no guarding Skin Other: Warm dry no rash Neuro General: patient oriented x3, no focal motor deficits and CN's II-XI intact bilaterally Psych Other: Slightly hostile at times Course Course Course Narrative: This is a Rapid Medical Examination (RME) performed by Talia Mills PA-C in triage. Full HPI, ROS, assessment and treatment plan per primary provider in the Main ED. 38 yo male hx asthma here for eval of periumbilical abd pain x3 days, constant but waxing and waning in severity. currently 10. assoc vomiting and loose stools. decreased PO intake/ appetite. no hx of similar. no med changes or strange foods. denies etoh consumption. endorses heroin use. Plan: labs, UA, will defer imaging to primary provider Reevaluation(s) Reevaluation #1: Patient has not had any episodes of active symptoms since he has been brought back to the main ED Medications Administered Discontinued Medications Generic Name Dose Route Start Last Admin Trade Name Zeinab PRN Reason Stop Dose Admin Dicyclomine HCl 20 mg 06/09/24 20:41 06/09/24 21:10 Dicyclomine Hcl 10 Mg Capsule PO 06/09/24 20:42 20 mg ONCE ONE Administration Sodium Chloride 1,000 mls @ 999 mls/hr 06/09/24 20:45 06/09/24 23:07 Ns IV 06/09/24 21:45 Infused .Q1H1M SILVA Infusion Ondansetron HCl 4 mg 06/09/24 20:41 06/09/24 21:10 Ondansetron Hcl 4 Mg/2 Ml Vial IVPUSH 06/09/24 20:42 4 mg ONCE ONE Administration Medical Decision Making Medical Decision Making [facility] Narrative: 38-year-old male with a history of heroin abuse presents with nausea vomiting diarrhea x3 days. Associated epigastric discomfort, nonradiating, unable to describe the nature of his symptoms. Patient states he can not tolerate oral intake, he is having 4-5 loose stools daily. Denies use of recent antibiotics, recent hospitalization no travel. No preceding cough or cold symptoms. No one is sick with same symptoms at home. Patient admits to using heroin prior to arrival. Problem: Substance abuse History: Per patient via family member who acts as environmental services technician I have considered the following differential diagnoses: Viral gastroenteritis, diverticulitis, colitis, infectious diarrhea/ C diff, opiate withdrawal Plan: Screening labs obtained from triage, they are unremarkable. We will give IV fluids, Zofran and dicyclomine. Patient's exam was benign, he does not warrant imaging, this is likely viral. To note, he has no risk factors for C diff or other known infectious diarrhea. Thought about opiate withdrawal, but the patient readily admits to using ?dope?, prior to arrival, he is not diaphoretic, he has no active GI symptoms he has an unremarkable abdominal exam. I have independently reviewed the following tests: Labs: No leukocytosis, not anemic, no electrolyte abnormality Lab Data 06/09/24 19:43 06/09/24 19:43 Labs: Lab Results 06/09/24 06/09/24 Range/Units 19:43 21:32 WBC 7.7 (4.8-10.8) X10*3/uL RBC 5.30 (4.60-5.80) X10*6/uL Hgb 14.6 (14.0-18.0) g/dl Hct 45.3 (42.0-52.0) % MCV 85.5 (80.0-98.0) fL MCH 27.5 (27.0-33.0) pg MCHC 32.2 (31.0-36.0) g/dl RDW 13.6 (11.0-16.0) % Plt Count 265 (160-400) X10*3/uL MPV 9.2 L (9.4-12.4) fL Immature Gran % (Auto) 0.4 (0.0-0.4) % Neut % (Auto) 67.1 (45-73) % Lymph % (Auto) 19.7 L (20-40) % [place] % (Auto) 9.4 (2-11) % Eos % (Auto) 3.1 (0-4) % Baso % (Auto) 0.3 (0-2) % Lymph # (Auto) 1.5 (1.2-4.9) X10*3/uL [place] # (Auto) 0.7 (0.1-1.2) X10*3/uL Eos # (Auto) 0.2 (0.0-0.4) X10*3/uL Baso # (Auto) 0.0 (0.0-0.2) X10*3/uL Abs Immat Gran (auto) 0.03 (0.00-0.03) X10*3/uL Absolute Neuts (auto) 5.1 (2.0-8.3) x10*3/uL Absolute Nucleated RBC 0.000 (0.0-0.012) X10*3/uL Nucleated RBC % (auto) 0.0 (0.0-0.2) /100WBC ESR 7 (0-15) MM/HR Sodium 138 (135-145) mmol/L Potassium 3.8 (3.3-5.1) mmol/L Chloride 103 (96-108) mmol/L Carbon Dioxide 25 (22-29) mmol/L Anion Gap 14 (12-20) BUN 14 (9-16) mg/dL Creatinine 0.80 (0.5-1.4) mg/dL Estim Creat Clear Calc 142.8 Estimated GFR > 60 Random Glucose 104 (60-115) mg/dL Calcium 9.5 (8.4-10.2) mg/dL Magnesium 2.1 (1.6-2.6) mg/dL Total Bilirubin 0.3 (0.0-1.0) mg/dL AST 18 (5-37) U/L ALT 17 (0-40) U/L Alkaline Phosphatase 74 (39-117) U/L C-Reactive Protein 2.55 H (< or = 0.50) mg/dL Total Protein 6.9 (6.5-8.0) g/dL Albumin 4.0 (3.5-5.0) g/dL Lipase 10 (8-78) U/L Urine Color Dark Yellow Urine Appearance Clear Urine pH 6.5 (5.0-9.0) Ur Specific [place] >= 1.030 H (1.005-1.025) Urine Protein Trace (Neg-Trace) mg/dL Urine Glucose (UA) Negative (Negative) mg/dL Urine Ketones 15 (Negative) mg/dL Urine Blood Negative (Negative) Urine Nitrite Negative (Negative) Ur Leukocyte Esterase Trace H (Negative) Urine RBC 0-2 (0-2) /HPF Urine WBC 0-5 (0-5) /HPF Ur Squamous Epith Cells 0-2 (0-2) /HPF Urine Bacteria None Seen (None Seen) Hyaline Casts 0-2 (0-2) /LPF Discharge Plan Discharge Clinical Impression: Viral gastroenteritis Patient Disposition: Home, Self-Care Instructions: Acute Nausea and Vomiting (ED), Enteritis (ED) Additional Instructions: You are being treated for gastroenteritis, this is likely viral. see home care instructions. All of your screening labs were normal. Uses Zofran as needed for nausea, use the dicyclomine as needed for abdominal pain and/or diarrhea. Follow up with your primary care provider as needed. Prescriptions: New ondansetron HCl 4 mg tablet 4 mg PO Q8H PRN (Reason: nausea and vomiting) Qty: 10 0RF dicyclomine 20 mg tablet 20 mg PO QID PRN (Reason: abdominal pain) Qty: 14 0RF No Action montelukast [Singulair] 10 mg tablet 10 mg PO BEDTIME 30 Days Qty: 30 11RF budesonide-formoterol [Symbicort] 160-4.5 mcg/actuation HFA aerosol inhaler 2 puff inhalation BID 30 Days Qty: 10.2 11RF prednisone 20 mg tablet 40 mg PO DAILY Qty: 8 0RF albuterol sulfate 90 mcg/actuation HFA aerosol inhaler 2 inh inhalation Q6H PRN (Reason: shortness of breath or wheezing) Qty: 8.5 0RF Print Language: Mauritian
[2024-06-09 19:47] LABS: MANUAL DIFF FLAG NO
[2024-06-09 19:49] LABS: Basophils Percent Auto 0.3 % (0-2); Eosinophils Absolute Auto 0.2 X10*3/uL (0.0-0.4); Eosinophils Percent Auto 3.1 % (0-4); Hematocrit 45.3 % (42.0-52.0); Hemoglobin 14.6 g/dl (14.0-18.0); Imm Gran Abs Auto 0.03 X10*3/uL (0.00-0.03); Imm Gran Pct Auto 0.4 % (0.0-0.4); Lymphocytes Absolute Auto 1.5 X10*3/uL (1.2-4.9); Lymphocytes Percent Auto 19.7 % (20-40); Mean Corpuscular HGB Conc 32.2 g/dl (31.0-36.0); Mean Corpuscular Hemoglobin 27.5 pg (27.0-33.0); Mean Corpuscular Volume 85.5 fL (80.0-98.0); Mean Platelet Volume 9.2 fL (9.4-12.4); Monocytes Absolute Auto 0.7 X10*3/uL (0.1-1.2); Monocytes Percent Auto 9.4 % (2-11); Neutrophils Absolute Auto 5.1 x10*3/uL (2.0-8.3); Neutrophils Percent Auto 67.1 % (45-73); Platelet Count 265 X10*3/uL (160-400); Red Cell Distribution Width 13.6 % (11.0-16.0); White Blood Count 7.7 X10*3/uL (4.8-10.8)
[2024-06-09 20:04] LABS: Alanine Aminotransferase 17 U/L (0-40); Alkaline Phosphatase 74 U/L (39-117); Anion Gap 14 (12-20); Aspartate Amino Transferase 18 U/L (5-37); Bilirubin Total 0.3 mg/dL (0.0-1.0); Blood Urea Nitrogen 14 mg/dL (9-16); C Reactive Protein 2.55 mg/dL (< or = 0.50); Calcium 9.5 mg/dL (8.4-10.2); Carbon Dioxide 25 mmol/L (22-29); Chloride 103 mmol/L (96-108); Creatinine Clr Calc Pharmacy 142.8; Estimated Glomerular Filt Rate > 60; Glucose Random 104 mg/dL (60-115); Lipase 10 U/L (8-78); Magnesium 2.1 mg/dL (1.6-2.6); Potassium 3.8 mmol/L (3.3-5.1); Sodium 138 mmol/L (135-145); Total Protein 6.9 g/dL (6.5-8.0)
[2024-06-09 20:50] LABS: Erythrocyte Sedimentation Rate 7 MM/HR (0-15)
[2024-06-09] MEDS: 0.9 % Sodium Chloride 1,000 ML 999 ML IV (21:10)
[2024-06-09] MEDS: Dicyclomine HCl 10 MG CAPSULE 20 MG PO (21:10)
[2024-06-09] MEDS: ondansetron HCL 4 MG/2 ML VIAL IVPUSH (21:10)
[2024-06-09 21:23] VITALS: BP 106/56; PULSE 52; RESP 12; TEMP 37.2; O2SAT 98
--- NOTE | 2024-06-09 21:34 | PC.NURSE ---
Pt up and ambulating to bathroom, steady gait, no acute distress.
[2024-06-09 21:38] LABS: Appearance Urine Clear; Color Urine Dark Yellow; Glucose Urine UA Negative (Negative); Leukocyte Esterase Urine Trace (Negative); Nitrite Urine Negative (Negative); PH 6.5 (5.0-9.0); Specific Gravity - Urine >= 1.030 (1.005-1.025); UMIC TRIGGER UACC YES; Urine Blood Negative (Negative); Urine Ketones 15 mg/dL (Negative); Urine Protein Trace mg/dL (Neg-Trace)
[2024-06-09 21:50] LABS: Bacteria Urine None Seen (None Seen); Hyaline Casts Urine 0-2 /LPF (0-2); RBC Urine 0-2 /HPF (0-2); Squamous Epithelial Cell Urine 0-2 /HPF (0-2); WBC Urine 0-5 /HPF (0-5)
[2024-06-09 22:08] VITALS: BP 113/61; PULSE 57; RESP 12; TEMP 37.2; O2SAT 97
[2024-06-09 23:23] VITALS: BP 116/62; PULSE 57; RESP 18; TEMP 36.9; O2SAT 98
[2024-06-09 23:43] VITALS: BP 116/62; PULSE 57; RESP 18; TEMP 36.9; O2SAT 98
== END 2024-06-09 23:44 | disposition home or self-care (01) ==
PROVIDERS: Physician Assistant Medical; Emergency Provider Emergency Medicine
DX: A08.4 Viral intestinal infection, unspecified (principal); R11.2 Nausea with vomiting, unspecified; R10.13 Epigastric pain; F11.90 Opioid use, unspecified, uncomplicated; F17.210 Nicotine dependence, cigarettes, uncomplicated; Z79.899 Other long term (current) drug therapy
CPT/HCPCS: 36415; 80053; 81001; 83690; 83735; 85025; 85652; 86140; 96361; 96374; 99284; J2405